=== PATIENT | female | born 2000 | race Caucasian/White ===

== ENCOUNTER 2023-10-03 07:09 | Day surgery (SDC) | payer BC, OTHER ==
[2023-09-29 10:19] VITALS: BMI 22.8
[2023-10-03] MEDS: IV FLUID CONTINUATION 1,000 ML IV ONE (07:25)
[2023-10-03] MEDS: SODIUM CHLORIDE 0.9% 1,000 ML IV SCH (07:25)
[2023-10-03 07:31] VITALS: BP 140/84; PULSE 72; RESP 14; TEMP 98
--- NOTE | 2023-10-03 12:20 | P.EPPROC ---
- EP Procedure Note Electrophysiology Procedure Note: Diagnosis Recurrent syncope Twelve-lead EKG shows sinus rhythm normal NH interval right bundle branch block pattern QRS width 110 ms, incomplete Normal QT interval normal ST segments Tilt table test per protocol Baseline blood pressure 130/74 mmHg baseline heart rate 57 beats a minute Patient was tilted upright in angle of 70 degrees per protocol No significant change in heart rate or blood pressure No symptoms She was laid supine at the end of the procedure Impression Normal twelve-lead EKG with an incomplete right bundle branch block pattern Normal heart rate and blood pressure response to upright tilting
== END 2023-10-03 10:33 | disposition home or self-care (01) ==
LOC: CATHEP 07:09
PROVIDERS: ATTEND Internal Medicine Clinical Cardiac Electrophysiology
DX: R55 Syncope and collapse (principal); R42 Dizziness and giddiness; R00.2 Palpitations; Z88.0 Allergy status to penicillin; Z88.1 Allergy status to other antibiotic agents; Z88.8 Allergy status to other drugs, medicaments and biological substances; Z91.040 Latex allergy status; Z91.010 Allergy to peanuts; Z79.51 Long term (current) use of inhaled steroids; Z79.899 Other long term (current) drug therapy
CPT/HCPCS: 81025; 93660